=== PATIENT | male | born 1985 | race Hispanic/Latino ===

== ENCOUNTER 2016-11-27 14:16 | Emergency (ER) | payer MEDICAID ==
[~2016-11-27] VITALS: Ht 177.8 cm; Wt 112.5 kg
[2016-11-27 14:16] VITALS: BP 130/81
[2016-11-27] MEDS ORDERED: NAPR500T PO (14:34)
[2016-11-27] MEDS ORDERED: PENI250T57 PO (15:14)
[2016-11-27] MEDS ORDERED: NORC5TAB PO (15:14)
== END 2016-11-27 15:23 | disposition home or self-care (01) ==
LOC: M ED 15:18
DX: K08.89 Other specified disorders of teeth and supporting structures (principal); R51 Headache

== ENCOUNTER 2019-06-30 21:26 | Emergency (ER) | payer MEDICAID, SELFPAY ==
[~2019-06-30] VITALS: Ht 172.7 cm; Wt 109.1 kg
[~2019-06-30 21:26] MED LIST: NAPR-837 PO; NORC1TAB7 PO; PENI250T57 PO
[2019-06-30 22:25] LABS: BASO % 0.3 % (0.0-1.0); EOS # 0.3 10^3/uL (0.0-0.5); HEMATOCRIT 47.2 % (42.0-52.0); LYMPH # 2.8 10^3/uL (1.5-5.0); LYMPH % 20.4 % (24.0-44.0); MEAN CORPUSCULAR HEMOGLOBIN 31.4 pg (27.0-33.0); MEAN CORPUSCULAR HGB CONC 33.9 g/dl (32.0-36.5); MEAN CORPUSCULAR VOLUME 92.7 fl (80.0-96.0); MONO # 0.8 10^3/uL (0.0-0.8); MONO % 5.8 % (0.0-5.0); NEUTROPHILS # 9.9 10^3/uL (1.5-8.5); NEUTROPHILS % 70.9 % (36.0-66.0); PLATELET COUNT, AUTOMATED 266 10^3/uL (150-450); RED BLOOD COUNT 5.09 10^6/uL (4.30-6.10); WHITE BLOOD COUNT 13.9 10^3/uL (4.0-10.0)
--- NOTE | 2019-06-30 22:51 | ECGEPIP ---
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
[2019-06-30 22:56] LABS: BLOOD UREA NITROGEN 19 MG/DL (7-18); CALCIUM LEVEL 9.3 MG/DL (8.5-10.1); CARBON DIOXIDE LEVEL 30 MEQ/L (21-32); CHLORIDE LEVEL 101 MEQ/L (98-107); CK-MB VALUE MASS 2.1 NG/ML (<3.6); CPK CREATINE PHOSPHOKINASE 303 U/L (39-308); CREATININE FOR GFR 1.15 MG/DL (0.70-1.30); GLOMERULAR FILTRATION RATE > 60.0 (>60); GLUCOSE, FASTING 107 MG/DL (70-100); MB/CK RELATIVE INDEX 0.69 (< OR =4); POTASSIUM SERUM 3.6 MEQ/L (3.5-5.1); SODIUM LEVEL 139 MEQ/L (136-145); TROPONIN I < 0.02 NG/ML (< 0.10)
[2019-06-30 23:08] LABS: ALBUMIN 4.1 GM/DL (3.2-5.2); ALT/SGPT 54 U/L (12-78); BILIRUBIN,DIRECT 0.1 MG/DL (0.0-0.2); BILIRUBIN,TOTAL 0.4 MG/DL (0.2-1.0); LIPASE 98 U/L (73-393); TOTAL PROTEIN 8.3 GM/DL (6.4-8.2)
[2019-06-30] MEDS ORDERED: MORPHINE 4 MG/ML 1ML VIAL/SYRINGE (J2270) IV PRN (23:15)
[2019-06-30] MEDS ORDERED: ONDANSETRON 4MG/2ML VIAL (J2405) IV ONE (23:15)
[2019-07-01] MEDS ORDERED: LEVS0.124 SL (03:45)
[2019-07-01] MEDS ORDERED: HYOSCYAMINE SULFATE 0.125 MG SUBL TABLET PO ONE (03:45)
[2019-07-01 03:49] VITALS: BP 134/81
--- NOTE | 2019-07-01 07:49 | REP ---
Clinical: chest pain. Comparison: none. Technique: PA and lateral. Findings: The mediastinum and cardiac silhouette are normal. The lung morrow are clear and without acute consolidation, effusion, or pneumothorax. The skeletal structures are intact and normal. Impression: 1. No acute cardiopulmonary process. Electronically Signed by Marc Luna MD 07/01/2019 07:41 A
--- NOTE | 2019-07-01 08:57 | REP ---
Clinical: Right upper quadrant pain. Technique: Real time toney scale ultrasound examination using curved array transducer. Findings: The liver is increased echogenicity with poor through transmission suggesting fatty infiltration. No focal hepatic lesion identified. Area of focal fatty sparing at the gallbladder fossa noted. Pancreas is incompletely evaluated due to interposed bowel gas but visualized portions appear normal. The gallbladder demonstrates gallstones and sludge without wall thickening, or pericholecystic fluid. No biliary ductal dilatation is appreciated and the common bile duct measures 5.9 mm diameter. The right kidney is normal in reniform shape without hydronephrosis and measures 11.2 x 5.0 x 4.6 cm. No ascites in the visualized right upper quadrant. Impression: 1. Hepatic steatosis. 2. Cholelithiasis Electronically Signed by Marc Luna MD 07/01/2019 08:48 A
== END 2019-07-01 04:13 | disposition home or self-care (01) ==
LOC: M ED 21:26
DX: K80.42 Calculus of bile duct with acute cholecystitis without obstruction (principal); K76.0 Fatty (change of) liver, not elsewhere classified; F17.200 Nicotine dependence, unspecified, uncomplicated; F10.20 Alcohol dependence, uncomplicated
CPT/HCPCS: 71045; 76705; 80048; 80076; 82550; 82553; 83690; 84484; 85025; 93005; 93041; 94760; 96374; 96375; 99284; J2270; J2405

== ENCOUNTER 2020-06-23 09:11 | Inpatient (IN) | payer MEDICAID, SELFPAY ==
[~2020-06-23] VITALS: Ht 172.7 cm; Wt 112.1 kg
[~2020-06-23 09:11] MED LIST changes: +LEVS0.124 SL
[2020-06-23] MEDS ORDERED: KETOROLAC 30 MG/ML 1ML VIAL IV ONE (10:30)
[2020-06-23] MEDS ORDERED: ONDANSETRON 4MG/2ML VIAL IV ONE (10:30)
[2020-06-23] MEDS ORDERED: NS 1,000 ML IV ONE (10:30)
[2020-06-23 11:56] LABS: BASO % 0.2 % (0.0-1.0); EOS % 0.1 % (0.0-3.0); HEMATOCRIT 48.2 % (42.0-52.0); HEMOGLOBIN 16.3 g/dl (13.5-17.5); LYMPH # 2.7 10^3/uL (1.5-5.0); LYMPH % 17.8 % (24.0-44.0); MEAN CORPUSCULAR HEMOGLOBIN 30.9 pg (27.0-33.0); MEAN CORPUSCULAR HGB CONC 33.8 g/dl (32.0-36.5); MEAN CORPUSCULAR VOLUME 91.5 fl (80.0-96.0); MONO # 1.3 10^3/uL (0.0-0.8); MONO % 8.7 % (0.0-5.0); NEUTROPHILS # 10.8 10^3/uL (1.5-8.5); NEUTROPHILS % 72.6 % (36.0-66.0); PLATELET COUNT, AUTOMATED 243 10^3/uL (150-450); RED BLOOD COUNT 5.27 10^6/uL (4.30-6.10); WHITE BLOOD COUNT 14.9 10^3/uL (4.0-10.0)
[2020-06-23 12:31] LABS: ALBUMIN 3.7 GM/DL (3.2-5.2); BILIRUBIN,DIRECT 0.3 MG/DL (0.0-0.2); BILIRUBIN,TOTAL 0.9 MG/DL (0.2-1.0); TOTAL PROTEIN 7.8 GM/DL (6.4-8.2)
[2020-06-23] MEDS ORDERED: PIPERACILLIN/TAZOBACTAM SOD 3.375 GM in D5W MINI-BAG PLUS 50 ML IV ONE (13:15)
[2020-06-23] MEDS ORDERED: LIDOCAINE 2% 100MG/5ML SDV (FOR ANES.) As Ordered ONE (14:04)
[2020-06-23] MEDS ORDERED: propofoL 200 MG/20 ML VIAL As Ordered ONE ×2 (14:04→16:13)
[2020-06-23] MEDS ORDERED: ROCURONIUM BROMIDE 50 MG/5 ML VIAL As Ordered ONE ×2 (14:04→16:42)
[2020-06-23] MEDS ORDERED: METOCLOPRAMIDE INJ 10MG/2ML VIAL (J2765 PER 1) As Ordered ONE (14:04)
[2020-06-23] MEDS ORDERED: ONDANSETRON 4MG/2ML VIAL As Ordered ONE (14:04)
[2020-06-23] MEDS ORDERED: MIDAZOLAM INJ 2MG/2ML VIAL (J2250 PER 1MG) As Ordered ONE (14:04)
[2020-06-23] MEDS ORDERED: fentaNYL 100 MCG/2 ML INJECTION (J3010) As Ordered ONE ×2 (14:05→16:13)
[2020-06-23] MEDS ORDERED: BUPIVACAINE HCL 0.25% 30ML VIAL As Ordered ONE (14:46)
[2020-06-23] MEDS ORDERED: LIDOCAINE 1% SDV 30ML VIAL As Ordered ONE (14:46)
--- NOTE | 2020-06-23 14:51 | HPEPDOC ---
General Surgery H&P Date of Admission Jun 23, 2020 Attending Physician: MORE GALLEGOS MD History and Physical CHIEF COMPLAINT: abdominal pain HISTORY OF PRESENT ILLNESS: 35-year-old male who presents to the emergency room today with about a five-day history of ongoing abdominal pain. Patient reports this started Saturday, initially epigastric, waxes and wanes and after couple days this became right upper quadrant discomfort that is constant steady and sharp associated with nausea, vomiting, unable to tolerate any oral intake and since yesterday feels subjectively febrile. This made him go to the emergency room today. He was workup was found to have evidence for an inflamed gallbladder. He previously was seen about a year ago with the same symptoms and was found to have gallstones and was having biliary colic and subsequently discharged home with patient did not follow up with anybody for this. In between that time patient reports he was not having any symptoms at all though previous to that he was having mild post prandial pain. ALLERGIES: Please see below. HOME MEDICATIONS: Please see below. PAST MEDICAL HISTORY: 1. Denies any chronic medical problems. PAST SURGICAL HISTORY: 1. None. PERSONAL/SOCIAL HISTORY: Reports one half pack per day smoking, drinks 6 beers up to a 12 pack beer daily. REVIEW OF SYSTEMS: GENERAL: Patient reports subjective fever. HEENT: [Denies blurred vision and double vision. Denies ear symptoms. Denies hoarseness]. NECK: [Denies any neck pain]. CARDIOVASCULAR: [Denies chest pain and palpitations]. MUSCULOSKELETAL: [Denies arthralgias, back pain and thrombophlebitis]. SKIN: [Denies rash]. NEUROLOGIC: [Denies headache, stroke and transient ischemic attack]. PSYCHIATRIC: [Denies anxiety and depression]. ENDOCRINE: [Denies thyroid disease]. HEMATOLOGY/ONCOLOGY: [Denies any bleeding or clotting disorder]. HEART: [Denies any chest pains, palpitations, paroxysmal dyspnea, orthopnea]. PULMONARY: [Denies chronic cough, dyspnea and wheezing]. GASTROINTESTINAL: See HPI. GENITOURINARY: [Denies dysuria, frequency, hematuria and nocturia]. ENDOCRINE: [Denies polydipsia, polyphagia, polyuria, heat or cold intolerance]. INFECTIOUS: [Denies any recent upper respiratory tract infection, UTI, need for use of antibiotics]. NUTRITION: Reports a poor appetite. PHYSICAL EXAMINATION: VITAL SIGNS: Please see below. GENERAL APPEARANCE: Patient seen laying flat on bed, relatively comfortable. [Awake, alert, oriented]. HEENT: [Normocephalic, atraumatic. Drain palpebral conjunctivae. Anicteric sclerae. Lips mildly dry]. CHEST: [No chest wall abnormalities. Normal respiratory motion/effort]. NECK: [Supple. No thyromegaly. No lymphadenopathies]. LUNGS: [Lung sounds are clear to auscultation bilaterally. No wheezing appreciated]. HEART: [No chest wall abnormalities. Heart rate and rhythm are regular with no murmurs]. ABDOMEN: Patient is obese in appearance, minimally distended. He is tender on palpation over the right upper quadrant area with mild guarding slightly tender over the epigastric area. SKIN: Warm and dry. EXTREMITIES: With no deformities or edema. NEUROLOGICAL: Awake, alert and oriented. ANCILLARIES: . LABORATORY DATA: Please see below. MICROBIOLOGY: Please see below. IMAGING: Ultrasound of the gallbladder demonstrates thickened gallbladder wall, 4 mm, presence of a large stone at the neck the gallbladder, colon bile duct at 6 mm, no intrahepatic or extrahepatic biliary dilatation noted. IMPRESSION AND PLAN: Cholelithiasis with acute cholecystitis Patient continues to have symptoms for 5 days and seems to be worsening and more symptomatic from his cholecystitis this I recommend proceeding with cholecystectomy at this time during this admission as he has had a prior attack and he tells me because of his insurance, it does not allow him to get that elective surgery. He has been given a dose of Zosyn 3.375 g IV. Depending on the intraoperative course, potential he he would be able to go home tomorrow.I discussed with the patient the details of the proposed procedure, the benefits of performing the procedure, the most common risks on doing the procedure. This may include. I have given him a chance to ask questions, voice out concerns. Patient has agreed to proceed. Risks that were discussed included risk for bile duct injury, bile leakage, bleeding, infection and abscess formation, injury to nearby bowels and blood vessels, possibility of converting to open surgery Vital Signs Vital Signs Date Time Temp Pulse Resp B/P (MAP) Pulse Ox O2 Delivery O2 Flow Rate FiO2 06/23/20 09:26 06/23/20 09:11 97.6 100 18 99 Room Air Laboratory Data Labs 24H Laboratory Tests 2 06/23/20 11:39: Immature Granulocyte % (Auto) 0.6, Neutrophils (%) (Auto) 72.6H, Lymphocytes (%) (Auto) 17.8L, Monocytes (%) (Auto) 8.7H, Eosinophils (%) (Auto) 0.1, Basophils (%) (Auto) 0.2, Neutrophils # (Auto) 10.8H, Lymphocytes # (Auto) 2.7, Monocytes # (Auto) 1.3H, Eosinophils # (Auto) 0.0, Basophils # (Auto) 0.0, Nucleated Red Blood Cells % (auto) 0.0, Lactic Acid Level 1.1, Total Bilirubin 0.9, Direct Bilirubin 0.3H, Aspartate Amino Transf (AST/SGOT) 19, Alanine Aminotransferase (ALT/SGPT) 51, Alkaline Phosphatase 64, Total Protein 7.8, Albumin 3.7, Albumin/Globulin Ratio 0.9, Lipase 57L 06/23/20 11:45: POC Glucose (Misc Panel) 108H, POC Sodium (Misc Panel) 134L, POC Potassium (Misc Panel) 3.9, POC Chloride (Misc Panel) 96L, POC Total CO2 (Misc Panel) 27.0, POC Blood Urea Nitrogen (Misc Panel 11, POC Ionized Calcium (Misc Panel) 4.5, POC Creatinine (Misc Panel) 0.9, POC Hematocrit (Misc Panel) 50.0 06/23/20 13:52: CBC/BMP Laboratory Tests 06/23/20 11:39 Home Medications No Active Prescriptions or Reported Meds Allergies Coded Allergies: No Known Allergies (Unverified , 11/27/16) A-FIB/CHADSVASC A-FIB History Current/History of A-Fib/PAF?: No Current PO Anticoag Therapy: No MORE GALLEGOS MD Jun 23, 2020 14:51
[2020-06-23] MEDS ORDERED: UNASYN 1.5 GM VIAL As Ordered ONE (15:13)
[2020-06-23] MEDS ORDERED: KETOROLAC 60MG 2ML VIAL As Ordered ONE (15:53)
[2020-06-23] MEDS ORDERED: SUGAMMADEX SODIUM 500 MG/5 ML VIAL (BRIDION) As Ordered ONE (15:53)
[2020-06-23] MEDS ORDERED: ACETAMINOPHEN 1000MG 100ML IV BTL (OFIRMEV) (J0131 PER 10MG) As Ordered ONE (15:53)
--- NOTE | 2020-06-23 16:16 | REP ---
INDICATION: ruq pain. COMPARISON: 06/30/2019. TECHNIQUE: Real-time sonographic evaluation of right upper quadrant performed. FINDINGS: There is sludge in the gallbladder as well as a nonmobile echogenic stone in the neck of the gallbladder. Patient is tender at the site of the gallbladder with transducer pressure. Gallbladder wall is mildly thickened at 4 mm. There is no free fluid. There is no intrahepatic or extrahepatic biliary dilatation, common bile duct measuring 6 mm. Liver demonstrates diffuse increased echotexture compatible with diffuse fatty infiltration. Visualized pancreas is grossly unremarkable, pancreatic tail is not well seen due to overlying bowel gas. Right kidney demonstrates no hydronephrosis with normal size 12.8 cm in length. IMPRESSION: Gallbladder sludge. There is an echogenic stone in the neck of the gallbladder which is not mobile with changes in patient positioning. Patient is tender at the site of the gallbladder with transducer pressure. There is mild gallbladder wall thickening at 4 mm. Findings may indicate cholecystitis. There is no biliary dilatation or free fluid. A preliminary report was provided by virtual Radiology at the time of the exam. <Electronically signed by Servando Loera > 06/23/20 [id number]
[2020-06-23] MEDS ORDERED: HYDROmorphone HCL 2 MG/ML 1ML VIAL (J1170) As Ordered ONE (16:49)
[2020-06-23] MEDS ORDERED: ACETAMINOPHEN TAB 650MG DOSE (2X325MG) PO PRN (18:45)
[2020-06-23] MEDS ORDERED: MORPHINE 2 MG/ML 1ML VIAL (J2270) IV PRN (18:45)
[2020-06-23] MEDS ORDERED: ONDANSETRON 4MG/2ML VIAL IV PRN ×2 (18:45→19:30)
[2020-06-23] MEDS: PERCOCET 5MG/325MG TAB PO PRN (19:05)
[2020-06-23 19:30] VITALS: BP 119/68
[2020-06-23] MEDS ORDERED: oxyCODONE 5MG TAB PO PRN (19:30)
[2020-06-23] MEDS ORDERED: METOCLOPRAMIDE INJ 10MG/2ML VIAL (J2765 PER 1) IV PRN (19:30)
[2020-06-23] MEDS ORDERED: fentaNYL 100 MCG/2 ML INJECTION (J3010) IV PRN (19:30)
[2020-06-23] MEDS ORDERED: LR 1,000 ML IV SCH (19:30)
[2020-06-23] MEDS ORDERED: MEPERIDINE INJ 25 MG/ML VIAL (J2175) IV PRN (19:30)
[2020-06-23 20:00] VITALS: BP 122/65
[2020-06-23] MEDS: DOCUSATE SODIUM 100 MG CAP PO SCH (20:02)
[2020-06-23] MEDS: AMPICILLIN SOD/SULBACTAM SOD 3 GM in D5W MINI-BAG PLUS 100 ML IV SCH (20:02)
[2020-06-23] MEDS: LR 1,000 ML IV SCH (20:02)
[2020-06-23 21:00] VITALS: BP 120/64
[2020-06-23 22:00] VITALS: BP 120/65
[2020-06-23 23:00] VITALS: BP 116/64
[2020-06-24] MEDS: KETOROLAC 30 MG/ML 1ML VIAL IV PRN ×3 (00:11→21:20)
[2020-06-24 02:00] VITALS: BP 110/62
[2020-06-24] MEDS: AMPICILLIN SOD/SULBACTAM SOD 3 GM in D5W MINI-BAG PLUS 100 ML IV SCH ×4 (02:01→21:05)
[2020-06-24] MEDS: PERCOCET 5MG/325MG TAB PO PRN (02:02)
[2020-06-24] MEDS: LR 1,000 ML IV SCH ×2 (05:20→14:46)
[2020-06-24 06:00] VITALS: BP 128/75
[2020-06-24 06:18] LABS: BASO % 0.3 % (0.0-1.0); EOS # 0.1 10^3/uL (0.0-0.5); EOS % 0.7 % (0.0-3.0); HEMATOCRIT 42.4 % (42.0-52.0); LYMPH # 2.8 10^3/uL (1.5-5.0); LYMPH % 27.2 % (24.0-44.0); MEAN CORPUSCULAR HEMOGLOBIN 31.1 pg (27.0-33.0); MEAN CORPUSCULAR HGB CONC 33.5 g/dl (32.0-36.5); MONO # 0.8 10^3/uL (0.0-0.8); MONO % 7.9 % (0.0-5.0); NEUTROPHILS # 6.6 10^3/uL (1.5-8.5); NEUTROPHILS % 63.3 % (36.0-66.0); PLATELET COUNT, AUTOMATED 228 10^3/uL (150-450); RED BLOOD COUNT 4.56 10^6/uL (4.30-6.10); WHITE BLOOD COUNT 10.3 10^3/uL (4.0-10.0)
[2020-06-24 06:24] LABS: HEMOGLOBIN 14.2 g/dl (13.5-17.5)
[2020-06-24 06:48] LABS: ALBUMIN 2.9 GM/DL (3.2-5.2); ALT/SGPT 63 U/L (12-78); BILIRUBIN,TOTAL 0.9 MG/DL (0.2-1.0); BLOOD UREA NITROGEN 12 MG/DL (7-18); CALCIUM LEVEL 8.4 MG/DL (8.5-10.1); CARBON DIOXIDE LEVEL 31 MEQ/L (21-32); CHLORIDE LEVEL 101 MEQ/L (98-107); CREATININE FOR GFR 0.85 MG/DL (0.70-1.30); GLOMERULAR FILTRATION RATE > 60.0 (>60); GLUCOSE, FASTING 89 MG/DL (70-100); POTASSIUM SERUM 3.7 MEQ/L (3.5-5.1); SODIUM LEVEL 136 MEQ/L (136-145); TOTAL PROTEIN 6.2 GM/DL (6.4-8.2)
[2020-06-24] MEDS: ENOXAPARIN 40MG/0.4ML SYRINGE (J1650 PER 10MG) SC SCH (08:19)
[2020-06-24] MEDS: DOCUSATE SODIUM 100 MG CAP PO SCH ×2 (08:19→21:05)
--- NOTE | 2020-06-24 08:36 | ROOPDOC ---
[facility] Report Of Operation Report of Operation DATE OF PROCEDURE: 06/23/20 PREPROCEDURE DIAGNOSES: Acute Cholecystitis. POSTPROCEDURE DIAGNOSES: Acute Cholecystitis. PROCEDURE: Laparoscopic Cholecystectomy. SURGEON: Abhijeet Booker MD DIRECTOR OF INSTRUCTION: Christy Lynch (MS III) ANESTHESIA: General Anesthesia.; Laparoscopic guided transversus abdominis plane block (TAP) with 1% lidocaine and 1/4% Marcaine ESTIMATED BLOOD LOSS: Approximately 50 mL. COMPLICATIONS: none. PROCEDURE NOTE: distented gallbladder, acutely inflamed and thickened wall. Large impacted stone at the infundibulum and neck of the gb. Dark black bile aspirated. . DESCRIPTION OF PROCEDURE: Patient was given a dose Unasyn 3 g IV preoperatively for acute cholecystitis. He was brought to the operating room, laid supine on the table, compression boots placed for DVT prophylaxis. General endotracheal anesthesia started. His abdomen then prepped and draped in usual sterile fashion. Surgical timeout was performed prior to confirm right procedure, right patient identification and other necessary information prior to starting surgery. Entry into the abdomen done through an incision about 2 cms above his umbilicus. A Veress needle was inserted in a controlled fashion. CO2 insufflation started to pressure 15 mmHg. Using the same incision a 5 mm optical trocar was placed under direct vision of a laparoscope. The area underneath the insertion site was inspected and no injury found. Survey of the abdomen shows thick healthy omentum. The gallbladder wasn't visible with there is evidence for inflamed omentum on top of the edge of the liver covering the gallbladder. The mass palpable during preoperative exam is actually a second omentum. There is a small amount of serous fluid around the area. The liver appears mildly enlarged but generally smooth in contour and healthy in appearance. He was then placed in steep reverse Trendelenburg. His right side was tilted up to further expose the area of the gallbladder. Under direct vision 3 more trochars were placed including a 10 mm epigastric port, 5 mm ports over the midclavicular line on the right side and 5 mm port at the anterior axillary line on the right side. A transversus abdominis plane block was then performed bilaterally using the lidocaine/marcaine mixture under laparoscopic guidance. The omental adhesions were bluntly dissected to expose the gallbladder. The gallbladder appears markedly intensely distended with a markedly thick wall. The gallbladder content was aspirated using an aspirating needle yielding black thick bile. Once the gallbladder was decompressed this was lifted up and el evated superiorly. The bottom the gallbladder remains enlarged and thickened and a large roughly 3 cm stone appears lodged at the level of the infundibulum. This seems incarcerated to the area and I was not able to push it up towards the upper body of the gallbladder to help with the infundibular retraction. For most of the surgery at to work with the bottom part of the gallbladder and the stone mostly in my way with difficulty in maintaining traction. The anvil opening peritoneum was thickened. The adipose and fibrous tissue along the hepatocystic triangle was likewise thickened. Make up the inflamed hepatocystic node at the area is one of my initial landmarks. The peritoneum was opened up at the lower portion body of the gallbladder circumferentially. This was met with losing along the wall of the gallbladder. The markings made by the enlarged by cystic node was likewise opened up. Because of the thickened gallbladder wall my virtual office assistant is having problems maintaining superior traction. Thus I released the posterior attachments of the fundus to the liver bed up to about a third of the upper portion of the gallbladder/fundus in a fundus down approach. This allowed me to further retract the gallbladder superiorly also helping with my dissection at the infundibulum. Progress and dissecting the hepatocystic triangle and the structures within it was slow but steady and continued to be managed by generalized oozing. I could make up the start of the cystic duct but there was such a lot of difficulty on the infundibular retraction with a large stone. To help with visualization I converted my 5 mm umbilical port to a 10 mm port and used a 10 mm [address] of the way. Thus I a decided to open up the anterior wall of the gallbladder at the mid body in a longitudinal fashion enough that I was able to extract this large stone from the neck and infundibulum of the gallbladder. This was temporarily placed on top of the liver.. With the release of the stone I was able to further develop dissection of the hepatocystic triangle and around the cystic duct. I was also able to get into a plane posterior to the lower body and neck of the gallbladder and freed this up from the cystic plate. The course of the cystic artery which was earlier defined posterior to the inflamed node was further developed. This dissection maneuvers was enough that I could make up both tubular structures though this wasn't a complete critical view of safety due to the amount of inflammation. Once I was able to circumferentially dissect the cystic duct enough, I milked the cystic duct to make sure there are no stones within this. 3 clips were then placed, 2 on the duct side and one in the gallbladder side and the cystic duct was divided. This allowed further control and visualization of the cystic artery and the fibrous structures around this was lysed. The cystic artery was then clipped and divided. I proceeded with the posterior dissection which was snf done but still remains slow due to the fibrotic nature of the posterior wall of the gallbladder. The gallbladder was eventually disengage from the whole of the liver bed. There are couple points in the liver bed which was mildly oozing which was cauterized. The gallbladder was then placed in an Endo Catch bag and retrieved outside through the epigastric port with blunt enlargement of the port site. I had to take the gallbladder and stone separately to separate bags to minimize the enlargement of the incision sites at the epigastric site. After removal, the abdomen was again reinflated. A thorough irrigation using saline was performed. The liver bed was inspected for losing. This was dried up and Tanya placed at the liver bed. . I closed the extraction site with a 0 Vicryl in a mattress fashion using a Sav Marrero device. The abdomen was deflated, The trochars removed Rest of the skin incisions closed with 4-0 Monocryl in subcuticular fashion. Dermabond placed to cover the incisions.. Patient was awakened, extubated and brought to recovery room stable. . ABHIJEET BOOKER MD Jun 24, 2020 08:36
--- NOTE | 2020-06-24 09:58 | IPNPDOC ---
Text Note Date of Service The patient was seen on 06/24/20. NOTE POD1 Laparoscopic Cholecystectomy for acute cholecystitis feels better but still having a lot of discomfort over the upper abdomen. Denies nausea, tolerating clears VS stable, afebrile Looks comfortable anicteric sclerae abdomen looks moderately distended on the upper abdomen, tympanitic, mild tenderness over right upper quadrant and epigastric area, RICHARD drain decreasing output, serosanguenous Labs reviewed leukocytosis normalized, LFTs normal Plan: will advance to regular diet He may have some localized ileus, leftover gastric distention continue abx during admission possible d/c tomorrow if the upper abdominal discomfort better, tolerating diet VS,Fishbone, I+O VS, Fishbone, I+O Laboratory Tests 06/23/20 11:39 06/24/20 05:46 Vital Signs Date Time Temp Pulse Resp B/P (MAP) Pulse Ox O2 Delivery O2 Flow Rate FiO2 06/24/20 06:00 99.1 78 18 128/75 (92) 98 Room Air 06/23/20 18:33 10 I&O- Last 24 Hours up to 6 AM 06/24/20 06:00 Intake Total 4551 ml Output Total 1390 ml Balance 3161 ml MORE GALLEGOS MD Jun 24, 2020 08:36
[2020-06-24 10:00] VITALS: BP 127/77
[2020-06-24] MEDS ORDERED: MOM 30ML SUSPENSION UDC PO ONE (13:30)
[2020-06-24 14:00] VITALS: BP 121/65
[2020-06-24 18:00] VITALS: BP 123/65
[2020-06-24 20:00] VITALS: BP_SYST 138; BP_SYST 149; BP_DIAS 83; BP_DIAS 86
[2020-06-25] MEDS: AMPICILLIN SOD/SULBACTAM SOD 3 GM in D5W MINI-BAG PLUS 100 ML IV SCH ×2 (01:46→07:53)
[2020-06-25 05:46] VITALS: BP 133/90
[2020-06-25 07:23] LABS: BASO % 0.3 % (0.0-1.0); EOS # 0.1 10^3/uL (0.0-0.5); EOS % 1.1 % (0.0-3.0); HEMATOCRIT 40.2 % (42.0-52.0); HEMOGLOBIN 13.2 g/dl (13.5-17.5); LYMPH # 2.1 10^3/uL (1.5-5.0); LYMPH % 19.9 % (24.0-44.0); MEAN CORPUSCULAR HEMOGLOBIN 30.4 pg (27.0-33.0); MEAN CORPUSCULAR HGB CONC 32.8 g/dl (32.0-36.5); MEAN CORPUSCULAR VOLUME 92.6 fl (80.0-96.0); MONO # 0.7 10^3/uL (0.0-0.8); MONO % 6.9 % (0.0-5.0); NEUTROPHILS # 7.3 10^3/uL (1.5-8.5); NEUTROPHILS % 71.3 % (36.0-66.0); PLATELET COUNT, AUTOMATED 239 10^3/uL (150-450); RED BLOOD COUNT 4.34 10^6/uL (4.30-6.10); WHITE BLOOD COUNT 10.3 10^3/uL (4.0-10.0)
[2020-06-25] MEDS: DOCUSATE SODIUM 100 MG CAP PO SCH (07:51)
[2020-06-25 07:52] LABS: ALBUMIN 2.8 GM/DL (3.2-5.2); ALT/SGPT 51 U/L (12-78); BILIRUBIN,TOTAL 0.5 MG/DL (0.2-1.0); BLOOD UREA NITROGEN 9 MG/DL (7-18); CALCIUM LEVEL 8.4 MG/DL (8.5-10.1); CARBON DIOXIDE LEVEL 29 MEQ/L (21-32); CHLORIDE LEVEL 104 MEQ/L (98-107); CREATININE FOR GFR 0.85 MG/DL (0.70-1.30); GLOMERULAR FILTRATION RATE > 60.0 (>60); GLUCOSE, FASTING 90 MG/DL (70-100); POTASSIUM SERUM 3.9 MEQ/L (3.5-5.1); SODIUM LEVEL 139 MEQ/L (136-145); TOTAL PROTEIN 6.2 GM/DL (6.4-8.2)
[2020-06-25] MEDS: PERCOCET 5MG/325MG TAB PO PRN (07:52)
[2020-06-25] MEDS: ENOXAPARIN 40MG/0.4ML SYRINGE (J1650 PER 10MG) SC SCH (07:53)
[2020-06-25] MEDS ORDERED: NORC1TAB7 PO (09:44)
== END 2020-06-25 11:45 | disposition home or self-care (01) | DRG 263 ==
LOC: M ED 09:11 → M SDC 09:12 → M MS5PR 18:33 → M SDC 19:40 → M MS5PR 19:40 → M SDC 06-25 11:45
PROVIDERS: ADMIT Surgery; ATTEND Surgery
PROC: 0FT44ZZ Resection of Gallbladder, Percutaneous Endoscopic Approach (ICD-10-PCS; principal; 2020-06-23 15:00)
DX: K80.62 Calculus of gallbladder and bile duct with acute cholecystitis without obstruction (principal)

== ENCOUNTER → 2024-02-14 | Outpatient (CLI) | payer BC ==
[2024-02-14 14:16] LABS: BASO % 0.2 % (0.0-1.0); EOS # 0.1 10^3/uL (0.0-0.5); EOS % 1.5 % (0.0-3.0); HEMATOCRIT 44.2 % (42.0-52.0); HEMOGLOBIN 14.8 g/dl (13.5-17.5); LYMPH % 31.7 % (24.0-44.0); MEAN CORPUSCULAR HEMOGLOBIN 31.1 pg (27.0-33.0); MEAN CORPUSCULAR HGB CONC 33.5 g/dl (32.0-36.5); MEAN CORPUSCULAR VOLUME 92.9 fl (80.0-96.0); MONO # 0.7 10^3/uL (0.0-0.8); NEUTROPHILS # 5.6 10^3/uL (1.5-8.5); NEUTROPHILS % 59.2 % (36.0-66.0); PLATELET COUNT, AUTOMATED 275 10^3/uL (150-450); RED BLOOD COUNT 4.76 10^6/uL (4.30-6.10); WHITE BLOOD COUNT 9.4 10^3/uL (4.0-10.0)
[2024-02-14 14:27] LABS: Trichomonas vaginalis (AMP) NOT DETECTED (NEGATIVE)
[2024-02-14 14:49] LABS: ALBUMIN 4.3 G/DL (3.2-5.2); ALKALINE PHOSPHATASE 75 U/L (46-116); ALT/SGPT 34 U/L (7.0-40); AST/SGOT 21 U/L (<34); BILIRUBIN,TOTAL 0.8 MG/DL (0.3-1.2); BLOOD UREA NITROGEN 14 MG/DL (9-23); CALCIUM LEVEL 8.9 MG/DL (8.5-10.1); CARBON DIOXIDE LEVEL 29 MMOL/L (20-31); CHLORIDE LEVEL 104 MMOL/L (98-107); CREATININE FOR GFR 0.94 MG/DL (0.70-1.30); GLOMERULAR FILTRATION RATE > 60.0 (>60); GLUCOSE, FASTING 86 MG/DL (60-100); SODIUM LEVEL 139 MMOL/L (136-145); TOTAL PROTEIN 7.2 G/DL (5.7-8.2)
[2024-02-14 14:51] LABS: FREE T4 1.35 NG/DL (0.89-1.76); TOTAL 25(OH) VITAMIN D 25.5 NG/ML (20.0-100.0)
[2024-02-14 14:51] LABS: GC DNA AMPLIFICATION NEGATIVE (NEGATIVE)
[2024-02-14 15:21] LABS: HIV 1&2 SCREEN NEGATIVE (NEGATIVE)
== END ==
LOC: MERGE 10:23 → M PLALAB 10:23
PROVIDERS: ATTEND Nurse Practitioner Family
DX: Z00.00 Encounter for general adult medical examination without abnormal findings (principal); Z11.3 Encounter for screening for infections with a predominantly sexual mode of transmission; E55.9 Vitamin D deficiency, unspecified; R63.5 Abnormal weight gain